=== PATIENT | male | born 1985 | race African-American/Black ===

== ENCOUNTER 2016-12-02 20:47 | Emergency (ER) | payer SELFPAY ==
[2016-12-02 20:57] VITALS: BP 121/73; PULSE 92; TEMP 98.5; BMI 23.7
[2016-12-02] MEDS ORDERED: ONDANSETRON 4 MG/2 ML VIAL IVPUSH ONE (21:11)
[2016-12-02] MEDS ORDERED: SODIUM CHLORIDE 0.9% 1000 ML INFUS.BAG IV ONE (21:11)
[2016-12-02] MEDS ORDERED: ONDANSETRON 4 MG/2 ML VIAL ONE (21:25)
--- NOTE | 2016-12-02 21:28 | PDOC ---
History of Present Illness - General History Source: Patient Exam Limitations: No Limitations - History of Present Illness Initial Comments: 12/02/16 21:21 The patient is a 31M with no PMH who presents to the ED with constant nausea and vomiting since 1630 today. The patient states that he was out all day in the sun and feels like he has heat exhaustion. This has happened to him before once last year. ROS+: "shakes", nausea, vomiting, fever, chills, headache, slight SOB ROS-: diarrhea, constipation, change in vision, numbness, tingling, weakness, CP , abd pain Social: Smokes 1PPD, marijana qD, no drinking SH: none PMH: none Allergies: NKDA <Sandip Timmons - Last Filed: 12/02/16 22:05> <Latanya Enriquez - Last Filed: 12/03/16 02:36> - General Chief Complaint: Heat Exhaustion Stated Complaint: HEAT EXHAUSTION,DIZZY,NAUSEA Time Seen by Provider: 12/02/16 21:00 Past History - Past Medical History Other medical history: DENIES - Immunization History Immunization Up to Date: Yes - Psycho/Social/Smoking Cessation Hx Suicidal Ideation: No Smoking History: Current every day smoker Number of Cigarettes Smoked Daily: 10 Information on smoking cessation initiated: No Hx Alcohol Use: No Drug/Substance Use Hx: No Substance Use Type: Marijuana <Sandip Timmons - Last Filed: 12/02/16 22:05> <Latanya Enriquez - Last Filed: 12/03/16 02:36> - Past Medical History Allergies/Adverse Reactions: Allergies Allergy/AdvReac Type Severity Reaction Status Date / Time No Known Allergies Allergy Verified 12/02/16 20:57 Review of Systems - Review of Systems Able to Perform ROS?: Yes Is the patient limited Turkish proficient: No Constitutional: Yes: Chills, Fever HEENTM: No: Blurred Vision Respiratory: Yes: Shortness of Breath (slight). No: Cough Cardiac (ROS): No: Chest Pain ABD/GI: No: Other (abd pain) Neurological: Yes: Headache. No: Numbness, Tingling, Weakness Endocrine: Yes: Flushing <Sandip Timmons - Last Filed: 12/02/16 22:05> *Physical Exam - Vital Signs Last Vital Signs Temp Pulse Resp BP Pulse Ox 98.5 F 92 H 18 121/73 100 12/02/16 20:52 12/02/16 20:52 12/02/16 20:52 12/02/16 20:52 12/02/16 20:52 - Physical Exam General Appearance: Yes: Nourished, Appropriately Dressed, Mild Distress HEENT: positive: Normal Voice Respiratory/Chest: positive: Lungs Clear, Normal Breath Sounds. negative: Respiratory Distress, Accessory Muscle Use, Labored Respiration Cardiovascular: positive: Regular Rhythm, Regular Rate, S1, S2 Gastrointestinal/Abdominal: positive: Flat, Soft. negative: Tender, Tenderness Integumentary: positive: Dry, Warm Neurologic: positive: Fully Oriented, Normal Mood/Affect <Sandip Timmons - Last Filed: 12/02/16 22:05> - Vital Signs Last Vital Signs Temp Pulse Resp BP Pulse Ox 98.5 F 92 H 18 121/73 100 12/02/16 20:52 12/02/16 20:52 12/02/16 20:52 12/02/16 20:52 12/02/16 20:52 <Latanya Enriquez - Last Filed: 12/03/16 02:36> ED Treatment Course - LABORATORY CBC & Chemistry Diagram: 12/02/16 21:33 <Sandip Timmons - Last Filed: 12/02/16 22:05> - LABORATORY CBC & Chemistry Diagram: 12/03/16 00:01 12/02/16 21:33 - ADDITIONAL ORDERS Additional order review: Laboratory Results 12/02/16 21:33 Sodium 139 Potassium 4.0 Chloride 104 Carbon Dioxide 26 Anion Gap 9 BUN 19 H Creatinine 1.3 Creat Clearance w eGFR > 60 Random Glucose 90 Calcium 9.6 Total Bilirubin 0.6 AST 24 ALT 19 Alkaline Phosphatase 44 L Total Protein 7.1 Albumin 3.9 12/03/16 00:01 RBC 4.54 MCV 91.7 MCHC 33.3 RDW 13.8 MPV 8.9 Neutrophils % 76.4 Lymphocytes % 16.4 Monocytes % 6.3 Eosinophils % 0.1 Basophils % 0.8 - Medications Given in the ED: ED Medications Discontinued Medications Generic Name Dose Route Start Last Admin Trade Name Freq PRN Reason Stop Dose Admin Diphenhydramine HCl 25 mg 12/02/16 22:42 07/04/17 23:01 Benadryl Injection - IVPUSH 12/02/16 22:43 25 mg ONCE ONE Administration Metoclopramide HCl 10 mg 12/02/16 22:42 12/02/16 23:01 Reglan Injection - IVPB 12/02/16 22:43 10 mg ONCE ONE Administration Ondansetron HCl 4 mg 12/02/16 21:11 12/02/16 21:35 Zofran Injection IVPUSH 12/02/16 21:12 4 mg ONCE ONE Administration Sodium Chloride 1,000 ml 12/02/16 21:11 12/02/16 21:35 Normal Saline - IV 12/02/16 21:12 1,000 ml ONCE ONE Administration <Latanya Enriquez - Last Filed: 12/03/16 02:36> Medical Decision Making - Medical Decision Making 12/02/16 21:32 Patient is a 31M with no PMH to the ED with nausea and vomiting since 0. He states this is similar to a previous heat exhaustion he has had last year. I have drawn electrolytes and giving him fluids and anti-emetics. Heat exhaustion is highest on my differential. I also suspect food poisoning through a pre- formed toxin. I inquired about any food intake and the patient denies anything unusual. I will stay updated on his labs and status. 12/02/16 21:49 Patient is asleep with family at bedside. Family states that he is continuing to have the shakes. 12/02/16 22:05 Pt signed out to Dr. Enriquez. <Sandip Timmons - Last Filed: 12/02/16 22:05> *DC/Admit/Observation/Transfer - Attestations Physician Attestion: 12/02/16 21:33 I, Dr. Sandip Timmons, attest that this document has been prepared under my direction and personally reviewed by me in its entirety. I further attest, that it accurately reflects all work, treatment, procedures and medical decision -making performed by me. 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
[2016-12-02 22:38] LABS: ALBUMIN 3.9 g/dl (3.4-5.0); ALK PHOS 44 U/L (45-117); ANION GAP 9 (8-16); BILIRUBIN,TOTAL 0.6 mg/dL (0.2-1.0); CALCIUM 9.6 mg/dL (8.5-10.1); CO2 26 mmol/L (21-32); CREATININE 1.3 mg/dL (0.7-1.3); GLUCOSE,RANDOM 90 mg/dL (74-106); SGPT/ALT 19 U/L (12-78); TOT PROT 7.1 g/dl (6.4-8.2)
[2016-12-02 22:41] LABS: SGOT/AST 24 U/L (15-37)
[2016-12-02] MEDS ORDERED: METOCLOPRAMIDE HCL INJECTION 10 MG/2 ML VIAL IVPB ONE (22:42)
[2016-12-02] MEDS ORDERED: METOCLOPRAMIDE HCL INJECTION 10 MG/2 ML VIAL ONE (22:44)
--- NOTE | 2016-12-02 23:32 | PDOC ---
Attending Attestation - Resident Resident Name: Sandip Timmons - HPI HPI: 12/02/16 23:31 31 yo male spent day outside and then in late afternoon started to have nausea and vomiting - Physicial Exam PE: 12/02/16 23:32 WNWD 31 yo male presents with c/o nausea lungs cta b/l cvs [id number] abd- no rebound,no guarding,increased bowel sounds ext no deformity,from neuro no focal neuro deficits - Medical Decision Making 12/02/16 23:34 slender 31 yo male p/w vomiting and nausea since late afternoon,denies diarrhea. No focal abdominal tenderness ,no rebound - chemistries unremarkable /received IVF and antiemetics .IMP gastritis
[2016-12-03 00:09] LABS: BASOPHIL 0.8 % (0-2.0); EOSINOPHIL 0.1 % (0-4.5); MCH 30.5 pg (25.7-33.7); MCHC 33.3 g/dl (32.0-35.9); MEAN CELL VOLUME 91.7 fl (80-96); MEAN PLT VOLUME 8.9 fl (7.5-11.1); NEUTROPHILS 76.4 % (42.8-82.8); PLATELET COUNT 283 K/MM3 (134-434); RDW 13.8 % (11.9-15.9); WHITE BLOOD COUNT 8.8 K/mm3 (4.0-10.0)
--- NOTE | 2016-12-03 00:25 | PDOC ---
*Physical Exam - Vital Signs Last Vital Signs Temp Pulse Resp BP Pulse Ox 98.5 F 92 H 18 121/73 100 12/02/16 20:52 12/02/16 20:52 12/02/16 20:52 12/02/16 20:52 12/02/16 20:52 ED Treatment Course - LABORATORY CBC & Chemistry Diagram: 12/03/16 00:01 12/02/16 21:33 - ADDITIONAL ORDERS Additional order review: Laboratory Results 12/02/16 21:33 Sodium 139 Potassium 4.0 Chloride 104 Carbon Dioxide 26 Anion Gap 9 BUN 19 H Creatinine 1.3 Creat Clearance w eGFR > 60 Random Glucose 90 Calcium 9.6 Total Bilirubin 0.6 AST 24 ALT 19 Alkaline Phosphatase 44 L Total Protein 7.1 Albumin 3.9 12/03/16 00:01 RBC 4.54 MCV 91.7 MCHC 33.3 RDW 13.8 MPV 8.9 Neutrophils % 76.4 Lymphocytes % 16.4 Monocytes % 6.3 Eosinophils % 0.1 Basophils % 0.8 - Medications Given in the ED: ED Medications Discontinued Medications Generic Name Dose Route Start Last Admin Trade Name Willianq PRN Reason Stop Dose Admin Diphenhydramine HCl 25 mg 12/02/16 22:42 12/02/16 23:01 Benadryl Injection - IVPUSH 12/02/16 22:43 25 mg ONCE ONE Administration Metoclopramide HCl 10 mg 12/02/16 22:42 12/02/16 23:01 Reglan Injection - IVPB 12/02/16 22:43 10 mg ONCE ONE Administration Ondansetron HCl 4 mg 12/02/16 21:11 12/02/16 21:35 Zofran Injection IVPUSH 12/02/16 21:12 4 mg ONCE ONE Administration Sodium Chloride 1,000 ml 12/02/16 21:11 12/02/16 21:35 Normal Saline - IV 12/02/16 21:12 1,000 ml ONCE ONE Administration Medical Decision Making - Medical Decision Making 12/03/16 00:24 labs essentially wnl -normal cbc -benign abdominal exam -no further vomiting and pt discharge home RX zofran sent to [facility] pharmacy *DC/Admit/Observation/Transfer Diagnosis at time of Disposition: Nausea and vomiting Qualifiers: Vomiting type: unspecified Vomiting Intractability: non-intractable Qualified Code(s): R11.2 - Nausea with vomiting, unspecified Heat exhaustion Qualifiers: Encounter type: initial encounter Qualified Code(s): T67.5XXA - Heat exhaustion , unspecified, initial encounter - Discharge Dispostion Disposition: HOME Condition at time of disposition: Stable - Prescriptions Prescriptions: Ondansetron HCl [Zofran] 4 mg PO TID PRN #6 tablet PRN Reason: Nausea And/Or Vomiting - Patient Instructions Printed Discharge Instructions: DI for Nausea -- Adult, DI for Vomiting -- Adult, DI for Heat Exhaustion and Heat Stroke Additional Instructions: -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
== END 2016-12-03 00:45 | disposition home or self-care (01) ==
LOC: JER 20:47
PROC: 3E033GC Introduction of Other Therapeutic Substance into Peripheral Vein, Percutaneous Approach (ICD-10-PCS; principal; 2016-12-02)
PROC: 3E033GC Introduction of Other Therapeutic Substance into Peripheral Vein, Percutaneous Approach (ICD-10-PCS; 2016-12-02)
PROC: 3E033GC Introduction of Other Therapeutic Substance into Peripheral Vein, Percutaneous Approach (ICD-10-PCS; 2016-12-02)
DX: T67.5XXA Heat exhaustion, unspecified, initial encounter (principal); X30.XXXA Exposure to excessive natural heat, initial encounter; Y93.89 Activity, other specified; Y92.89 Other specified places as the place of occurrence of the external cause
CPT/HCPCS: 36415; 80053; 85025; 99282-25